=== PATIENT | female | born 1980 | race Hispanic/Latino ===

== ENCOUNTER 2018-12-06 14:50 | Outpatient (CLI) | payer BC ==
--- NOTE | 2018-12-06 16:53 | ULT ---
FOCUSED ULTRASOUND OF THE LEFT POPLITEAL FOSSA 12/06/18 HISTORY: Clinical concern for a Wheat's cyst, palpable abnormality with pain. TECHNIQUE: Multiplanar jones scale sonographic imaging of the popliteal fossa obtained. The popliteal artery and vein was assessed with color flow and spectral analysis. FINDINGS: There is a lobulated hypoechoic lesion with internal complexity in the left popliteal fossa measuring 3.7 x 1.1 cm. This is separate from the popliteal artery and vein. This lesion demonstrates no inter nal blood flow and is most consistent with a complex popliteal fossa cyst, possibly hemorrhagic in na ture. If further imaging is clinically warranted, MRI advised. IMPRESSION: Findings suggesting a complicated/complex left Wheat's cyst as detailed above. POS: OFF
== END 2018-12-06 14:51 | disposition home or self-care (01) ==
LOC: BICULT 14:50
PROVIDERS: ATTEND Family Medicine
DX: M71.22 Synovial cyst of popliteal space [Baker], left knee (principal)
CPT/HCPCS: 76999

== ENCOUNTER 2025-04-13 09:47 | Outpatient (CLI) | payer BC | END 2025-04-13 09:48 | disposition home or self-care (01) | LOC: BICCT 09:47 | PROVIDERS: ATTEND Family Medicine | DX: R29.90 Unspecified symptoms and signs involving the nervous system (principal) | CPT/HCPCS: 70450; 93880 ==